=== PATIENT | male | born 1955 | race Caucasian/White ===

== ENCOUNTER 2016-08-22 14:36 | Observation (INO) | payer MEDICARE ==
[~2016-08-22] VITALS: Ht 152.4 cm; Wt 94.0 kg
[2016-08-22 15:22] LABS: BASO % 0.3 % (0.2-1.2); EOS # 0.1 10_X3_uL (0.0-0.5); EOS % 1.3 % (0.8-7.0); GRAN # 6.3 10_X3_uL (1.8-5.4); GRAN % 69.2 % (34.0-67.9); HEMATOCRIT 46.5 % (40-51); HEMOGLOBIN 16.5 g/dL (13.7-17.5); LYMPH # 1.3 10_X3_uL (1.3-3.6); LYMPH % 14.4 % (21.8-53.1); MEAN CORPUSCULAR HEMOGLOBIN 30.6 pg (27.0-33.0); MEAN CORPUSCULAR HGB CONC 35.5 g/dL (32.0-36.0); MEAN CORPUSCULAR VOLUME 86.1 fL (79-92); MEAN PLATELET VOLUME 10.5 fl (7.5-11.5); MONO # 1.4 10_X3_uL (0.3-0.8); MONO % 14.8 % (5.3-12.2); PLATELET COUNT 204 x10_3/uL (163-337); RED CELL DISTRIBUTION WIDTH 13.6 % (11.6-14.4); WHITE BLOOD COUNT 9.1 x10_3/uL (4.2-9.1)
[2016-08-22 15:35] LABS: ALKALINE PHOSPHATASE 70 U/L (50-136); ALT/SGPT 81 U/L (7.53-40.17); AST/SGOT 55 U/L (6.66-35.34); BILIRUBIN,TOTAL 1.21 mg/dL (0.0-1.0); BLOOD UREA NITROGEN 25 mg/dL (7-18); CALCIUM 8.6 mg/dL (8.7-10.7); CARBON DIOXIDE 17 mmol/L (21-32); CREATINE KINASE 117 U/L (35-232); GLUCOSE,RANDOM 109 mg/dL (70-99); POTASSIUM 4.2 mmol/L (3.5-5.1); SODIUM 133 mmol/L (136-145)
[2016-08-22 16:52] LABS: ARTERIAL BLOOD GAS BASE EXCESS -3.5 mmol/L (-2.0-3.0); ARTERIAL BLOOD GAS HCO3 18.4 mmol/L (22-26); ARTERIAL BLOOD GAS PCO2 27.3 mmHg (35-48); ARTERIAL BLOOD GAS pH 7.44 (7.35-7.45)
[2016-08-24 07:18] LABS: HEMATOCRIT 38.9 % (40-51); HEMOGLOBIN 13.5 g/dL (13.7-17.5); MEAN CORPUSCULAR HEMOGLOBIN 30.5 pg (27.0-33.0); MEAN CORPUSCULAR HGB CONC 34.7 g/dL (32.0-36.0); MEAN PLATELET VOLUME 10.9 fl (7.5-11.5); RED BLOOD COUNT 4.42 x10_6/uL (4.6-6.1); RED CELL DISTRIBUTION WIDTH 13.7 % (11.6-14.4); WHITE BLOOD COUNT 15.4 x10_3/uL (4.2-9.1)
[2016-08-24 07:26] LABS: BLOOD UREA NITROGEN 25 mg/dL (7-18); CALCIUM 7.9 mg/dL (8.7-10.7); CARBON DIOXIDE 17 mmol/L (21-32); CREATININE 0.8 mg/dL (0.6-1.3); GLUCOSE,RANDOM 163 mg/dL (70-99); POTASSIUM 4.6 mmol/L (3.5-5.1); SODIUM 140 mmol/L (136-145)
== END 2016-08-24 11:55 | disposition home or self-care (01) ==
LOC: ER 14:36 → MS 17:55 → UNDODEPER 08-26 18:51
PROVIDERS: Emergency Medicine; ADMIT Family Medicine
PROC: 3E0234Z Introduction of Serum, Toxoid and Vaccine into Muscle, Percutaneous Approach (ICD-10-PCS; principal; 2016-08-23)
DX: J10.1 Influenza due to other identified influenza virus with other respiratory manifestations (principal); J44.1 Chronic obstructive pulmonary disease with (acute) exacerbation; J60 Coalworker's pneumoconiosis; D72.829 Elevated white blood cell count, unspecified; E66.9 Obesity, unspecified; H61.22 Impacted cerumen, left ear; R11.0 Nausea; R07.89 Other chest pain; R42 Dizziness and giddiness; R51 Headache; I10 Essential (primary) hypertension; Z79.82 Long term (current) use of aspirin; Z79.899 Other long term (current) drug therapy; Z83.3 Family history of diabetes mellitus; Z80.9 Family history of malignant neoplasm, unspecified; Z82.49 Family history of ischemic heart disease and other diseases of the circulatory system; Z98.42 Cataract extraction status, left eye; Z98.41 Cataract extraction status, right eye; Z23 Encounter for immunization
CPT/HCPCS: 36415; 36600; 71020; 80048; 80053; 82550; 82553; 82803; 83605; 85025; 87040; 87070; 87205; 87400; 90732; 93005; 94640; 94664; 96361; 96365; 96366; 96367; 96372; 96376; 99070; 99284-25; G0009; G0378; J2930